=== PATIENT | female | born 1995 ===

== ENCOUNTER 2025-06-26 07:38 | Inpatient (IN) | payer OTHER ==
[2025-06-26] VITALS (34 sets, daily range): BP systolic 107–167; BP diastolic 56–99
[~2025-06-26] VITALS: Ht 157.5 cm; Wt 70.8 kg
[2025-06-26] MEDS ORDERED: FentaNYL Citrate 50 MCG/ML 2 ML Injection IV PRN (08:00)
[2025-06-26] MEDS ORDERED: Methylergonovine Maleate 0.2MG / ML 1ML Amp IM PRN ×2 (08:05→18:55)
[2025-06-26] MEDS ORDERED: Ondansetron HCl 2 MG / ML 2ML Vial IV PRN (08:05)
[2025-06-26] MEDS ORDERED: Oxytocin 10 Unit / ML Vial IM PRN (08:05)
[2025-06-26] MEDS ORDERED: OXYTOCIN/RINGER'S LACTATE 500 ML IV PRN (08:05)
[2025-06-26] MEDS ORDERED: ePHEDrine Sulfate 50 MG/ML 1ML Injection XX PRN (08:05)
[2025-06-26] MEDS ORDERED: FentaNYL 2mcg/ml-Bup 0.1% Epd 250 ML EPI PRN (08:05)
[2025-06-26] MEDS ORDERED: Carboprost Tromethamine 250 MCG/ML 1ML Amp IM PRN (08:05)
[2025-06-26] MEDS ORDERED: Tranexamic Acid 100 ML IV SCH (08:05)
[2025-06-26] MEDS ORDERED: OXYTOCIN/RINGER'S LACTATE 500 ML IV SCH ×2 (08:10→18:55)
[2025-06-26] MEDS ORDERED: BIKTARVY 50-201 EAC1 PO (08:50)
[2025-06-26] MEDS ORDERED: PRENATAL TABLE1 EAC2 PO (08:50)
[2025-06-26 09:55] LABS: BASOPHILS ABSOLUTE AUTO 0.02 K/mm3 (0.00-0.23); BASOPHILS PERCENT AUTO 0 % (0-2); EOSINOPHILS ABSOLUTE AUTO 0.15 K/mm3 (0.00-0.68); EOSINOPHILS PERCENT AUTO 2 % (0-6); Hematocrit 32.3 % (33.0-51.0); Hemoglobin 10.9 g/dL (11.5-16.0); IMMATURE GRAN ABSOLUTE AUTO 0.08 K/mm3 (0.00-0.10); IMMATURE GRAN PERCENT AUTO 1 % (0-1); LYMPHOCYTES ABSOLUTE AUTO 1.70 K/mm3 (0.84-5.20); LYMPHOCYTES PERCENT AUTO 21 % (21-46); MONOCYTES ABSOLUTE AUTO 0.71 K/mm3 (0.16-1.47); MONOCYTES PERCENT AUTO 9 % (4-13); Mean Corpuscular HGB Conc 33.7 g/dL (31.5-36.5); Mean Corpuscular Volume 96 fL (80-100); NEUTROPHILS ABSOLUTE AUTO 5.43 K/mm3 (1.96-9.15); NEUTROPHILS PERCENT AUTO 67 % (41-73); NRBC ABSOLUTE 0.02 K/mm3 (0.00-0.02); NRBC Auto 0.2 /100 WBC (0.0-0.2); Platelet Count 161 K/mm3 (150-400); RDW Coefficient Variation 13.4 % (11.7-14.2); RDW Standard Deviation 47.2 fL (35.1-46.3)
[2025-06-26] MEDS ORDERED: Witch Hazel/Glycerin PADS TOP PRN (18:55)
[2025-06-26] MEDS ORDERED: FLU VACC TS2025-26(6MOS UP)/PF 45 MCG/0.5 ML SYRINGE IM ONE (18:55)
[2025-06-26] MEDS ORDERED: Ketorolac Tromethamine 30mg Vial IV PRN (19:00)
[2025-06-26] MEDS ORDERED: Benzocaine Topical Anesthetic Spray 60GM TOP PRN (19:00)
[2025-06-27 05:40] VITALS: BP 115/68
[2025-06-27] MEDS ORDERED: Prenatal Vit/FE Fumarate/FA 1 Tab PO SCH (09:00)
[2025-06-27 11:14] VITALS: BP 128/77
[2025-06-27 16:02] VITALS: BP 130/68
[2025-06-27 20:55] VITALS: BP 121/86
[2025-06-28 00:27] VITALS: BP 122/66
[2025-06-28 04:54] VITALS: BP 114/71
[2025-06-28 08:08] VITALS: BP 128/75
[2025-06-28] MEDS ORDERED: IBUP800 PO (12:31)
[2025-06-28 12:48] VITALS: BP 127/68
--- NOTE | 2025-06-28 12:57 | NUR ---
DISCHARGE MOTHER TO BOARDER STATUS. CARING FOR SELF AND BABY INDEPENDANTLY. NO QUESTIONS OR CONCERNS. LOCHIA SCANT. DENIES PAIN. VSS. VERBALIZES UNDERSTANDING OF DC INSTRUCTIONS AND FOLLOW UP APPOINTMETNS. PLAN TO DC BABY HOME ON MONDAY WHEN THEY CAN GET MEDICATIONS AT THE PHARMACY. REQUEST FOLLOW UP APPOINTMENT MONDAY THEY LIVE AN HOUR AWAY AND DOESNT WORK ON MONDAY.
== END 2025-06-28 12:56 | disposition home or self-care (01) | DRG 807 ==
LOC: OBS 07:38 → BC 07:40 → OBS 07:45 → BC 07:46
PROVIDERS: ADMIT Advanced Practice Midwife
PROC: 10E0XZZ Delivery of Products of Conception, External Approach (ICD-10-PCS; principal; 2025-06-26)
PROC: 3E033VJ Introduction of Other Hormone into Peripheral Vein, Percutaneous Approach (ICD-10-PCS; 2025-06-26)
PROC: 3E0R3BZ Introduction of Anesthetic Agent into Spinal Canal, Percutaneous Approach (ICD-10-PCS; 2025-06-26)
PROC: 00HU33Z Insertion of Infusion Device into Spinal Canal, Percutaneous Approach (ICD-10-PCS; 2025-06-26)
PROC: 3E02340 Introduction of Influenza Vaccine into Muscle, Percutaneous Approach (ICD-10-PCS; 2025-06-26)
DX: O98.72 Human immunodeficiency virus [HIV] disease complicating childbirth (principal); Z37.0 Single live birth; Z3A.39 39 weeks gestation of pregnancy; Z21 Asymptomatic human immunodeficiency virus [HIV] infection status; O36.63X0 Maternal care for excessive fetal growth, third trimester, not applicable or unspecified; O69.81X0 Labor and delivery complicated by cord around neck, without compression, not applicable or unspecified
CPT/HCPCS: 36415; 51702; 85025; 86850; 86900; 86901; A9270; J1885; J2590; J7120